=== PATIENT | male | born 1990 | race Caucasian/White ===

== ENCOUNTER 2025-03-09 18:41 | Emergency (ER) | payer SELFPAY ==
[2025-03-09 18:41] VITALS: BP 160/102; PULSE 70; RESP 16; TEMP 36.7; O2SAT 96; BMI 33.9
--- NOTE | 2025-03-09 18:50 | CTR_ITS ---
PROCEDURE INFORMATION: Exam: CT Maxillofacial Without Contrast Exam date and time: 03/09/2025 6:59 PM Age: 34 years old Clinical indication: Injury or trauma; Other: Blunt trauma; Forehead and nose; Patient was doing repair work on outboard boat motor that was running at high rpm when the flywheel broke loose striking patient in head at close range. Laceration to lower forehead and nasion. TECHNIQUE: Imaging protocol: Computed tomography of the face without contrast. Radiation optimization: All CT scans at this facility use at least one of these dose optimization techniques: automated exposure control; mA and/or kV adjustment per patient size (includes targeted exams where dose is matched to clinical indication); or iterative reconstruction. COMPARISON: CT head wo con* [id number] 03/09/2025 6:56 PM RADIATION DOSE METRICS: Total DLP (mGy-cm): 612.48 FINDINGS: Brain: Normal appearance of the visualized intracranial contents. Paranasal sinuses: Visualized paranasal sinuses are normally aerated and clear throughout. Orbital cavities: The orbits and globes appear intact. No orbital fracture is seen. Mastoid air cells: Visualized mastoid air cells are clear. Auditory system: Minimal debris in the left external auditory canal. Teeth: Scattered dental and periodontal disease. Bones: No evidence of a mandibular fracture or malalignment. Soft tissues: There is a soft tissue defect consistent with a laceration the midline frontal scalp and superior nose with associated soft tissue swelling over the nasal bone. No radiopaque foreign body is seen. There is minimal buckling of the nasal bone suggesting a nondisplaced fracture. There is leftward bowing of the nasal septum and possible nondisplaced septal fracture at the superior attachment. CT/CT facial bones wo con* [id number] IMPRESSION: 1. Laceration at the midline of the frontal scalp and superior nose with associated soft tissue swelling overlying the nose. Nasal bone buckling suggesting nondisplaced fractures and possible nondisplaced fracture at the superior nasal septal attachment. 2. Incidental scattered moderate dental and periodontal disease.
--- NOTE | 2025-03-09 18:50 | CTR_ITS ---
PROCEDURE INFORMATION: Exam: CT Head Without Contrast Exam date and time: 03/09/2025 6:56 PM Age: 34 years old Clinical indication: Injury or trauma; Blunt trauma (contusions or hematomas) and laceration; Patient was doing repair work on outboard boat motor that was running at high rpm when the flywheel broke loose striking patient in head at close range. Laceration to lower forehead and nasion. TECHNIQUE: Imaging protocol: Computed tomography of the head without contrast. Radiation optimization: All CT scans at this facility use at least one of these dose optimization techniques: automated exposure control; mA and/or kV adjustment per patient size (includes targeted exams where dose is matched to clinical indication); or iterative reconstruction. COMPARISON: No relevant prior studies available. RADIATION DOSE METRICS: Total DLP (mGy-cm): 1125.95 FINDINGS: Brain: No intracranial mass or mass effect. No intracranial hemorrhage is seen. Normal dukes-white matter differentiation throughout. No areas of sulcal effacement are noted. Cerebral ventricles: The ventricles and other CSF spaces are symmetric and normal for age. Paranasal sinuses: There is normal aeration of the visualized paranasal sinuses. Mastoid air cells: There is no fluid in the mastoid air cells. Auditory system: Minimal debris in the left external auditory canal. Bones: No fracture is seen. Soft tissues: Soft tissue defect overlying the frontal scalp and nose consistent with provided history of laceration. Underlying soft tissue swelling. No radiopaque foreign body. CT/CT head wo con* [id number] IMPRESSION: Laceration along the midline at the frontal scalp and superior nose with associated soft tissue swelling. No radiopaque foreign body or underlying fracture. No acute intracranial pathology.
--- NOTE | 2025-03-09 18:51 | ED_ITS ---
HPI - Head Injury General: Chief complaint: Head Injury Stated complaint: Head Injury Time Seen by Provider: 03/09/25 18:42 Source: patient Mode of arrival: ambulatory Limitations: no limitations History of Present Illness: 34-year-old male states he is working on his boat he states the fly wheel flew off when he started it and hit him in the head he does have a deep laceration to the middle forehead and the bridge of his nose does have a headache denies any loss consciousness no other injuries noted. Associated symptoms: Deny nausea, neck pain or vomiting Related Data Allergies Allergy/AdvReac Type Severity Reaction Status Date / Time naproxen (From Aleve) Allergy ALGY-Rash Verified 03/09/25 18:48 Review of Systems Const: Denies: fever(s), chills, body aches or change in appetite ENMT: Denies: throat pain or dental pain Card: Denies: chest pain Resp: Denies: dyspnea GI: Denies: abdominal pain, nausea, vomiting or diarrhea Musc: Denies: neck pain or back pain Skin/Breast: Denies: rash Neuro: Reports: headache(s) Physical Exam Const: COMMON NORMALS: no acute distress, patient oriented x3 and healthy ap pearing HENMT: OTHER: Deep 4 cm laceration to his forehead 2 cm laceration to bridge of his nose Eye: COMMON NORMALS: Equal, round and reactive pupils present and EOMs intact bilaterally PUPIL: Yes Equal, round and reactive pupils present Neck/C-Spine: COMMON NORMALS: full ROM and supple Chest: COMMONS NORMALS: normal inspection of the chest and normal palpation of entire chest wall Resp: COMMON NORMALS: normal respiratory effort Cardio: COMMON NORMALS: regular rate RATE: regular rate Extremity: COMMON NORMALS: normal to inspection and full ROM Neuro: COMMON NORMALS: patient oriented x3, moves all extremities and no focal motor deficits Psych: COMMON NORMALS: mental status grossly normal, Normal thought process present and cooperative THOUGHT PROCESS: Normal thought process present Skin: COMMON NORMALS: no rashes or lesions noted GENERAL SKIN EXAM: no rashes or lesions noted Procedures Laceration Laceration 1: Site: face Size (cm): 4 Description: linear Depth: involves muscle layer Local Anesthetic: lidocaine 1% Amount of anesthesia used (mL): 7 Pre-repair: wound explored and irrigated extensively Skin layer closed with: nylon Size (cm): 5-0 Number of sutures: 5 Technique: simple, interrupted Subcutaneous layer closed with: vicryl Size: 4-0 Number of sutures: 3 Technique: simple, interrupted Laceration 2: Site: other (nasal bridge) Description: linear Depth: simple, single layer Local Anesthetic: lidocaine 1% Amount of anesthesia used (mL): 4 Pre-repair: wound explored, irrigated extensively and deep structures intact Skin layer closed with: nylon Size (cm): 5-0 Number of sutures: 3 Technique: simple, interrupted Course Vital Signs: Vital signs: Vital Signs Temperature 98.0 F 03/09/25 18:41 Pulse Rate 70 03/09/25 18:41 Respiratory Rate 16 03/09/25 18:41 Blood Pressure 160/102 03/09/25 18:41 Pulse Oximetry 96 03/09/25 18:41 Oxygen Delivery Me thod Room Air 03/09/25 18:41 MDM - Head Injury Medcial Decision Making Patient presents with head and nasal laceration also likely nasal fracture did repair the wounds he is return in 7 days for suture removal we will get a referral to ENT he is return if worsening he understands agrees to plan. Lab Data Radiology Impressions Face CT 03/09/25 18:50 IMPRESSION: 1. Laceration at the midline of the frontal scalp and superior nose with associated soft tissue swelling overlying the nose. Nasal bone buckling suggesting nondisplaced fractures and possible nondisplaced fracture at the superior nasal septal attachment. 2. Incidental scattered moderate dental and periodontal disease. Head CT 03/09/25 18:50 IMPRESSION: Laceration along the midline at the frontal scalp and superior nose with associated soft tissue swelling. No radiopaque foreign body or underlying fracture. No acute intracranial pathology. 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
[2025-03-09] MEDS: HYDROcodone-acetaminophen 5-325 mg Tablet 1 TAB PO (19:20)
[2025-03-09] MEDS: tetanus-dipt-pertussis 0.5 mL SDV IM (19:21)
[2025-03-09 19:38] VITALS: BP 151/90; PULSE 62; RESP 16; O2SAT 95
--- NOTE | 2025-03-15 09:20 | DCPLANNER ---
Referral sent to Teressa
== END 2025-03-09 19:40 | disposition home or self-care (01) ==
PROVIDERS: Emergency Provider Emergency Medicine
DX: S01.21XA Laceration without foreign body of nose, initial encounter (principal); W20.8XXA Other cause of strike by thrown, projected or falling object, initial encounter; S01.81XA Laceration without foreign body of other part of head, initial encounter
CPT/HCPCS: 12011; 12052; 70450; 70486; 90471; 90715; 99284; J9999